=== PATIENT | male | born 2000 | race Two or more races ===

== ENCOUNTER 2023-10-09 15:29 | Inpatient (IN) | payer OTHER ==
[~2023-10-09] VITALS: Ht 180.3 cm; Wt 159.7 kg
--- NOTE | 2023-10-09 15:38 | NUR ---
PTE ALERTA Y ORIENTADO X3. REFIERE DOLOR DE CUERPO, DOLOR DE CABEZ Y FIEBRE EN EL HOGRA DESDE EL SABADO. SE ROMAIN SV TEMP. ORAL 100.7F. SE OFRECE ACETAMINOPHEN 1000MG PO
[2023-10-09] MEDS ORDERED: ACETAMINOPHEN 500 MG GEL..CAP PO ONE ×2 (15:43→15:45)
--- NOTE | 2023-10-09 15:57 | NUR ---
PTE MASCULINO EVALUADO POR . SE ORIENTA SOBRE ORDEN DE TX REFIERE COMPRENDER. SE COLECTAN MUESTRAS DE LABORATORIOS, BAJO MEDIDAS ASEPTICAS.
[2023-10-09 16:19] LABS: HEMATOCRIT 44.1 % (39.0-48.0); HEMOGLOBIN 15.3 g/dL (13-16.00); MEAN CELL VOLUME 87.5 fL (80.0-100.00); MEAN CORPUSCULAR HEMOGLOBIN 30.5 pg (27.00-32.0); MEAN CORPUSCULAR HGB CONC 34.8 g/dl (32.0-36.0); RED BLOOD COUNT 5.04 M/uL (4.00-6.00); RED CELL DISTRIBUTION WIDTH 12.8 % (11.5-14.5)
[2023-10-09 16:33] LABS: CALCIUM 8.3 mg/dL (8.5-10.1); CREATININE SERUM 1.49 mg/dL (0.70-1.30); GFR 58.44; POTASSIUM 3.62 mEq/L (3.5-5.1)
[2023-10-09 16:49] LABS: PLATELET COUNT 89 K/uL (150-450)
[2023-10-09] MEDS ORDERED: 0.9 % SODIUM CHLORIDE 1,000 ML IV STA (17:38)
--- NOTE | 2023-10-09 18:00 | NUR ---
PTE MASCULINO RE-EVALUADO POR . SE ORIENTA SOBRE ORDEN DE TX REFIERE ENTENDER. SE CANALIZA VENA BAJO MEDIDAS ASEPTICAS, AREA [place] DE EDEMA Y ERITEMA. SE ADMINISTRAN LIQUIDOS INTRAVENOSOS, EMERITA ORDEN MEDICA. SE UBICA PTE EN ALICIA NIVEL MAS BAJO CON BARANDAS ELEVADAS POR SEGURIDAD.
[2023-10-09] MEDS ORDERED: PANTOPRAZOLE SODIUM 40 MG/VIAL VIAL IV SCH (18:29)
[2023-10-09] MEDS ORDERED: 0.9 % SODIUM CHLORIDE 1,000 ML IV SCH (18:30)
[2023-10-09] MEDS ORDERED: ONDANSETRON HCL 4 MG in 0.9 % SODIUM CHLORIDE 50 ML IV PRN (18:30)
[2023-10-09] MEDS ORDERED: ACETAMINOPHEN 500 MG GEL..CAP PO PRN (18:30)
[2023-10-09 20:15] LABS: PH,URINE 5.5 (5.0-8.0); URINE APPEARANCE Clear; URINE BILIRRUBIN Negative (NEGATIVE); URINE BLOOD Small; URINE COLOR Yellow; URINE GLUCOSE Negative (NEGATIVE); URINE LEUKOCYTE Negative; URINE NITRATE Negative; URINE PROTEIN 30 (NEGATIVE); URINE UROBILINOGEN 0.2 E.U./dl
[2023-10-09 20:19] LABS: URINE BACTERIA 7.5 uL (0.0-1933); URINE EPITHELIAL CELLS 9.7 uL (0.0-38.8); URINE WBC 47.5 uL (0.0-23.2)
[2023-10-09 20:32] LABS: INR 1.33; PARTIAL THROMBOPLASTIN TIME 35.1 SECONDS (22.0-34.0); PROTHROMBIN TIME 13.7 SECONDS (9.0-11.5); URINE RBC 1.9 uL (0.0-20.8)
[2023-10-09 20:38] LABS: BILIRUBIN TOTAL 0.69 mg/dL (0.3-1.2); BILIRUBIN,CONJUGATED 0.21 mg/dL (0.0-0.2); BILIRUBIN,UNCONJUGATED 0.48 mg/dL (0.0-0.6); TOTAL PROTEIN 7.7 gm/dL (6.4-8.2)
[2023-10-10 08:57] LABS: HEMATOCRIT 42.7 % (39.0-48.0); HEMOGLOBIN 15.2 g/dL (13-16.00); MEAN CELL VOLUME 86.7 fL (80.0-100.00); MEAN CORPUSCULAR HEMOGLOBIN 30.9 pg (27.00-32.0); MEAN CORPUSCULAR HGB CONC 35.6 g/dl (32.0-36.0); RED BLOOD COUNT 4.92 M/uL (4.00-6.00); RED CELL DISTRIBUTION WIDTH 12.9 % (11.5-14.5)
[2023-10-10 09:25] LABS: ALBUMIN 3.4 gm/dL (3.4-5.0); BILIRUBIN TOTAL 0.68 mg/dL (0.3-1.2); CALCIUM 8.2 mg/dL (8.5-10.1); CREATININE SERUM 1.12 mg/dL (0.70-1.30); GFR 81.25; GLOBULINA 3.4 G/DL (2.4-3.5); POTASSIUM 4.03 mEq/L (3.5-5.1); TOTAL PROTEIN 6.8 gm/dL (6.4-8.2)
[2023-10-10 10:15] LABS: PLATELET COUNT 55 K/uL (150-450)
[2023-10-11 08:05] LABS: HEMATOCRIT 43.9 % (39.0-48.0); HEMOGLOBIN 15.3 g/dL (13-16.00); MEAN CELL VOLUME 88.3 fL (80.0-100.00); MEAN CORPUSCULAR HEMOGLOBIN 30.8 pg (27.00-32.0); MEAN CORPUSCULAR HGB CONC 34.9 g/dl (32.0-36.0); RED BLOOD COUNT 4.97 M/uL (4.00-6.00); RED CELL DISTRIBUTION WIDTH 12.5 % (11.5-14.5)
[2023-10-11 08:30] LABS: BILIRUBIN TOTAL 0.59 mg/dL (0.3-1.2); CREATININE SERUM 0.92 mg/dL (0.70-1.30); GFR 101.95; GLOBULINA 3.1 G/DL (2.4-3.5); MAGNESIUM 2.4 mg/dL (1.8-2.4); PHOSPHOROUS 3.1 mg/dL (2.5-4.9); POTASSIUM 4.62 mEq/L (3.5-5.1); TOTAL PROTEIN 6.1 gm/dL (6.4-8.2)
[2023-10-11 09:16] LABS: PLATELET COUNT 47 K/uL (150-450)
[2023-10-11] MEDS ORDERED: METHYLPREDNISOLONE SOD SUCC 40 MG VIAL IV SCH (12:00)
[2023-10-12 08:20] LABS: HEMATOCRIT 39.1 % (39.0-48.0); HEMOGLOBIN 13.9 g/dL (13-16.00); MEAN CELL VOLUME 86.6 fL (80.0-100.00); MEAN CORPUSCULAR HEMOGLOBIN 30.7 pg (27.00-32.0); MEAN CORPUSCULAR HGB CONC 35.5 g/dl (32.0-36.0); RED BLOOD COUNT 4.51 M/uL (4.00-6.00); RED CELL DISTRIBUTION WIDTH 13.1 % (11.5-14.5)
[2023-10-12 08:28] LABS: PLATELET COUNT 45 K/uL (150-450)
[2023-10-13 06:27] LABS: PLT IN CITRATE 72 K/uL (150-450)
[2023-10-13 06:39] LABS: HEMATOCRIT 38.7 % (39.0-48.0); HEMOGLOBIN 13.7 g/dL (13-16.00); MEAN CELL VOLUME 87.5 fL (80.0-100.00); MEAN CORPUSCULAR HEMOGLOBIN 30.9 pg (27.00-32.0); MEAN CORPUSCULAR HGB CONC 35.4 g/dl (32.0-36.0); RED BLOOD COUNT 4.43 M/uL (4.00-6.00); RED CELL DISTRIBUTION WIDTH 12.7 % (11.5-14.5)
[2023-10-13 06:49] LABS: PLATELET COUNT 80 K/uL (150-450)
[2023-10-13 07:13] LABS: ALBUMIN 2.8 gm/dL (3.4-5.0); BILIRUBIN TOTAL 0.45 mg/dL (0.3-1.2); CALCIUM 7.7 mg/dL (8.5-10.1); CREATININE SERUM 0.75 mg/dL (0.70-1.30); GFR 129.06; GLOBULINA 2.9 G/DL (2.4-3.5); POTASSIUM 4.09 mEq/L (3.5-5.1); TOTAL PROTEIN 5.7 gm/dL (6.4-8.2)
== END 2023-10-13 14:04 | disposition home or self-care (01) | DRG 866 ==
LOC: ER 15:30 → MEDI 19:07
PROVIDERS: General Practice; Internal Medicine Nephrology; ADMIT Internal Medicine; ATTEND Internal Medicine
DX: A90 Dengue fever [classical dengue] (principal); N17.9 Acute kidney failure, unspecified; D69.6 Thrombocytopenia, unspecified; R74.01 Elevation of levels of liver transaminase levels; B34.9 Viral infection, unspecified; R04.0 Epistaxis